=== PATIENT | male | born 1945 | race Caucasian/White ===

== ENCOUNTER → 2019-11-10 | Outpatient (REF) | payer MEDICARE, OTHER ==
[2019-11-10 17:38] LABS: BLOOD UREA NITROGEN 25 MG/DL (7-18); CALCIUM LEVEL 9.8 MG/DL (8.8-10.2); CARBON DIOXIDE LEVEL 26 MEQ/L (21-32); CHLORIDE LEVEL 106 MEQ/L (98-107); CREATININE FOR GFR 1.09 MG/DL (0.70-1.30); GLOMERULAR FILTRATION RATE > 60.0 (>42); GLUCOSE, FASTING 77 MG/DL (70-100); POTASSIUM SERUM 4.3 MEQ/L (3.5-5.1); SODIUM LEVEL 136 MEQ/L (136-145)
== END ==
LOC: M LABDRAWC 16:01
PROVIDERS: ATTEND Nurse Practitioner Women's Health
DX: C61 Malignant neoplasm of prostate (principal)
CPT/HCPCS: 36415; 80048; G0463

== ENCOUNTER → 2019-12-16 | Outpatient (CLI) | payer OTHER ==
--- NOTE | 2019-12-16 13:18 | REPPI ---
INDICATION: ELEVATED PSA. COMPARISON: None. TECHNIQUE: Real-time sonographic evaluation of prostate performed utilizing transrectal probe. FINDINGS: The prostate measures 4.6 x 3.9 x 5.4 x 5 cm for a total volume of 50.6 mL. Scattered tiny cysts and calcifications are seen. A nodule in the right mid aspect measures 9 x 5 mm. IMPRESSION: Ultrasound guidance was provided for Dr. Pickett who performed ultrasound-guided biopsy of the prostate. <Electronically signed by Jairo Araujo > 12/16/19 [id number]
== END ==
LOC: M SMT PRO 08:21
PROVIDERS: ATTEND Urology
DX: C61 Malignant neoplasm of prostate (principal); R97.20 Elevated prostate specific antigen [PSA]
CPT/HCPCS: 55700; 76872; 76942; G0416

== ENCOUNTER → 2020-01-29 | Outpatient (CLI) | payer OTHER ==
[~2020-01-29] MED LIST: ACET325C5 PO; ALLO100T PO; IBUP200C25 PO; INDO25SU PO; LOPE-39 PO; SYNT100T PO; TUMS500C PO; VALT1TAB PO; ZOCO40TA PO
== END ==
LOC: M LABSMTC 11:04
PROVIDERS: ATTEND Anesthesiology
DX: Z01.812 Encounter for preprocedural laboratory examination (principal); Z20.828 Contact with and (suspected) exposure to other viral communicable diseases

== ENCOUNTER 2020-02-03 10:49 | Inpatient (IN) | payer OTHER ==
[~2020-02-03] VITALS: Ht 172.7 cm; Wt 105.7 kg
[~2020-02-03 10:49] MED LIST changes: +LIDOCAINE 2% 100MG/5ML SDV (FOR ANES.) As Ordered ONE; +LR 1,000 ML IV ONE; +ONDANSETRON 4MG/2ML VIAL As Ordered ONE; +ROCURONIUM BROMIDE 50 MG/5 ML VIAL As Ordered ONE; +SUGAMMADEX SODIUM 500 MG/5 ML VIAL (BRIDION) As Ordered ONE; +dexameTHASONE 4 MG/ML 1ML VIAL (J1100 PER 1MG) As Ordered ONE; +fentaNYL 100 MCG/2 ML INJECTION (J3010) As Ordered ONE; +propofoL 200 MG/20 ML VIAL As Ordered ONE
[2020-02-03] MEDS ORDERED: BUPIVACAINE HCL 0.25% 30ML VIAL As Ordered ONE (11:45)
[2020-02-03] MEDS ORDERED: LIDOCAINE 1% SDV 30ML VIAL As Ordered ONE (11:45)
[2020-02-03] MEDS ORDERED: ceFAZolin SOD 2 GM in IV 1 EA IV ONE (12:00)
[2020-02-03] MEDS ORDERED: HEPARIN SOD (PORCINE) 5000UNITS/ML 1ML VIAL/SYRINGE SQ ONE (12:15)
[2020-02-03] MEDS ORDERED: HEPARIN SOD (PORCINE) 5000UNITS/ML 1ML VIAL/SYRINGE As Ordered ONE (12:22)
[2020-02-03] MEDS ORDERED: HYDROmorphone HCL 2 MG/ML 1ML VIAL (J1170) As Ordered ONE (13:19)
[2020-02-03] MEDS ORDERED: MIDAZOLAM INJ 2MG/2ML VIAL (J2250 PER 1MG) As Ordered ONE (13:28)
[2020-02-03] MEDS ORDERED: ROCURONIUM BROMIDE 50 MG/5 ML VIAL As Ordered ONE ×4 (13:55→16:20)
[2020-02-03] MEDS ORDERED: ePHEDrine SULFATE 25 MG/5 ML(5MG/ML) SYRINGE As Ordered ONE ×2 (14:34→16:10)
[2020-02-03] MEDS ORDERED: LIDOCAINE 2% 100MG/5ML SDV (FOR ANES.) As Ordered ONE ×2 (15:48→16:43)
[2020-02-03] MEDS ORDERED: ACETAMINOPHEN 1000MG 100ML IV BTL (OFIRMEV) (J0131 PER 10MG) As Ordered ONE (16:49)
[2020-02-03] MEDS ORDERED: propofoL 200 MG/20 ML VIAL As Ordered ONE (16:49)
[2020-02-03] MEDS ORDERED: NS 1,000 ML IV SCH (17:53)
[2020-02-03] MEDS ORDERED: ONDANSETRON 4MG/2ML VIAL IV PRN ×2 (18:00→18:45)
[2020-02-03] MEDS ORDERED: PERCOCET 5MG/325MG TAB PO PRN (18:00)
[2020-02-03] MEDS ORDERED: MORPHINE 2 MG/ML 1ML VIAL (J2270) IV PRN (18:00)
[2020-02-03] MEDS ORDERED: ACETAMINOPHEN TAB 650MG DOSE (2X325MG) PO PRN (18:00)
--- NOTE | 2020-02-03 18:16 | ROOPDOC ---
[facility] Report Of Operation Report of Operation DATE OF PROCEDURE: 02/03/20 PREPROCEDURE DIAGNOSES: Prostate Cancer. POSTPROCEDURE DIAGNOSES: Prostate Cancer. PROCEDURE: Robotic-assisted Laparoscopic Radical Prostatectomy. SURGEON: Joann Todd MD CONTRACTING ENGINEER: Mague Boyer NP ANESTHESIA: General. OPERATIVE INDICATIONS: This is a 74 year old male with clinical T1c [place] 3+3 prostate cancer, here today for treatment. DESCRIPTION OF PROCEDURE: The patient was brought to the operating room and general anesthesia was induced. Prophylactic antibiotics were infused. He was then placed in the supine position and prepped and draped in the usual sterile fashion. At this point, a Lala catheter was inserted into the bladder and the balloon was filled with 10 mL of sterile water. We then made a midline incision just above the umbilicus for an 8 mm port. A Veress needle was utilized to achieve pneumoperitoneum. Next, an 8 mm port was inserted into the incision and subsequently a camera was inserted. There were no injuries from the Veress needle or initial trocar placement. Then three robotic ports were placed in the usual configuration in line just below the level of the umbilicus. A 12 mm physical laboratory assistant port was inserted lateral to the camera port. Once all the ports were placed, the robot was docked. Additional lysis of adhesions between the sigmoid colon and abdominal wall was then performed. The bladder was then released from the anterior abdominal wall using electrocautery. Once the bladder was dropped, the fat overlying the prostate was cleared using electrocautery. The superficial dorsal vein was controlled with electrocautery. The endopelvic fascia was opened on both sides and the dorsal venous complex was cleared. Next, a #0 Vicryl cppnvy-st-ctkce stitch was placed around the dorsal venous complex. Once that was done, the bladder was opened and dissected away from the prostate. At this point, the prostate was lifted up. The vasa deferentia were identified in the midline. They were ligated and transected. The seminal vesicles were also dissected bilaterally. The rectum was safely mobilized away from the prostate. Bilateral neurovascular bundles were carefully dissected off the prostate on both sides using cold scissors. I then ligated and transected bilateral prostatic pedicles using the SynchroSeal. The pedicles were carried towards the apex. After taking care of the pedicles and mobilizing the rectum off the prostate below, the prostate was only connected by the urethra. At this point, the dorsal venous complex was transected with electrocautery. The urethra was then opened and the catheter was withdrawn and the posterior urethra was transected, thus freeing the prostate. At this point, we checked for hemostasis and it appeared very good. Once hemostasis was confirmed, I then moved on to perform the vesicourethral anastomosis. The vesicourethral anastomosis was performed in running fashion using a Quill stitch. Once this was done, the final #20-Togolese Lala catheter was placed. The balloon was filled with 15 mL of sterile water. Upon completion of the vesicourethral anastomosis, it was tested by filling the bladder with sterile saline. The anastomosis appeared to be watertight. At this point, the prostate and seminal vesicles were placed in an Endo Catch bag for future retrieval. A Nicola-Shelton drain was brought in through the left robotic port skin site and the drain was positioned anterior to the bladder. The robot was then undocked. A Rafael fascial closure device was utilized to place a #0 Vicryl suture through the fascia of the 12 mm physical laboratory assistant port. The drain was secured to the skin with #2-0 Ethilon suture. The prostate and seminal vesicles were then extracted from the camera port site after the skin was extended. The fascia in this incision was then closed with a running #0 Vicryl stitch. Next, all the remaining ports were removed and there did not appear to be any bleeding from any of the port sites. The previously placed #0 Vicryl free ties through the physical laboratory assistant port were then tied down and all incisions were irrigated. Last, all of the incisions were closed with running subcuticular #4-0 Monocryl sutures. Local anesthesia was applied. Dermabond was then applied to the incisions. This marked the conclusion of the procedure. The patient was then awakened from anesthesia and transported to the recovery room in stable condition. ESTIMATED BLOOD LOSS: 175mL. COMPLICATIONS: None. SPECIMENS: Prostate and seminal vesicles. PLAN: The patient will be admitted to the hospital postoperatively, and he will likely be discharged home within the next 1-2 days. JOANN TODD MD Feb 03, 2020 18:16
[2020-02-03 18:26] LABS: HEMATOCRIT 45.1 % (42.0-52.0); HEMOGLOBIN 14.7 g/dl (13.5-17.5); MEAN CORPUSCULAR HEMOGLOBIN 32.2 pg (27.0-33.0); MEAN CORPUSCULAR HGB CONC 32.6 g/dl (32.0-36.5); MEAN CORPUSCULAR VOLUME 98.9 fl (80.0-96.0); PLATELET COUNT, AUTOMATED 227 10^3/uL (150-450); RED BLOOD COUNT 4.56 10^6/uL (4.30-6.10); WHITE BLOOD COUNT 9.3 10^3/uL (4.0-10.0)
[2020-02-03 18:42] LABS: CALCIUM LEVEL 9.1 MG/DL (8.8-10.2); CREATININE FOR GFR 1.4 MG/DL (0.70-1.30); GLOMERULAR FILTRATION RATE 52.9 (>42)
[2020-02-03] MEDS ORDERED: fentaNYL 100 MCG/2 ML INJECTION (J3010) IV PRN (18:45)
[2020-02-03] MEDS ORDERED: LR 1,000 ML IV SCH (18:45)
[2020-02-03] MEDS ORDERED: oxyCODONE 5MG TAB PO PRN (18:45)
[2020-02-03] MEDS ORDERED: HYDROMORPHONE HCL 0.5 MG/ 0.5 ML SYRINGE (J1170 PER 1) IV PRN (18:45)
[2020-02-03 19:45] VITALS: BP 112/64
[2020-02-03] MEDS: DOCUSATE SODIUM 100MG CAPSULE PO SCH (22:36)
[2020-02-03] MEDS: ceFAZolin SOD 1 GM in D5W MINI-BAG PLUS 50 ML IV SCH (22:36)
[2020-02-03] MEDS: valACYclovir HCL 500 MG TAB PO SCH (22:36)
[2020-02-03] MEDS: HEPARIN SOD (PORCINE) 5000UNITS/ML 1ML VIAL/SYRINGE SC SCH (22:37)
[2020-02-03] MEDS: PERCOCET 5MG/325MG TAB PO PRN (23:35)
[2020-02-04 03:28] VITALS: O2SAT 97
[2020-02-04] MEDS: ceFAZolin SOD 1 GM in D5W MINI-BAG PLUS 50 ML IV SCH (05:50)
[2020-02-04] MEDS: HEPARIN SOD (PORCINE) 5000UNITS/ML 1ML VIAL/SYRINGE SC SCH ×2 (05:50→14:00)
[2020-02-04 06:00] VITALS: BP 111/65
[2020-02-04] MEDS ORDERED: LEVOTHYROXINE 100MCG TABLET (0.1MG) PO SCH (06:00)
[2020-02-04] MEDS: PERCOCET 5MG/325MG TAB PO PRN ×2 (06:05→10:34)
[2020-02-04 06:20] LABS: HEMATOCRIT 41.5 % (42.0-52.0); HEMOGLOBIN 13.3 g/dl (13.5-17.5); MEAN CORPUSCULAR HEMOGLOBIN 31.9 pg (27.0-33.0); MEAN CORPUSCULAR VOLUME 99.5 fl (80.0-96.0); PLATELET COUNT, AUTOMATED 231 10^3/uL (150-450); RED BLOOD COUNT 4.17 10^6/uL (4.30-6.10); WHITE BLOOD COUNT 9.3 10^3/uL (4.0-10.0)
[2020-02-04 06:44] LABS: BLOOD UREA NITROGEN 29 MG/DL (7-18); CALCIUM LEVEL 8.3 MG/DL (8.8-10.2); CARBON DIOXIDE LEVEL 25 MEQ/L (21-32); CHLORIDE LEVEL 105 MEQ/L (98-107); CREATININE FOR GFR 1.17 MG/DL (0.70-1.30); GLOMERULAR FILTRATION RATE > 60.0 (>42); GLUCOSE, FASTING 96 MG/DL (70-100); POTASSIUM SERUM 4.9 MEQ/L (3.5-5.1); SODIUM LEVEL 138 MEQ/L (136-145)
--- NOTE | 2020-02-04 07:48 | IPNPDOC ---
Subjective Review oF Systems Chief Complaint The patient is a 74-year-old male admitted with a reason for visit of Prostate Cancer. Events since Last Encounter No acute events o/n. Good pain control. No n/v. Has not ambulated yet. No f/c/ns. Objective Physical Examination General Exam: Alert, Cooperative, No Acute Distress ABDOMEN EXAM: Soft, Tenderness (mild), Other (incisions clean/dry/intact; MELCHOR w/ serosanguinous output) Neuro Exam: Normal Speech Psych Exam: Mental status NL, Mood NL Other physical findings catheter draining erlinda colored urine Vital Signs/I&O Vital Signs Date Time Temp Pulse Resp B/P (MAP) Pulse Ox O2 Delivery O2 Flow Rate FiO2 02/04/20 06:35 16 02/04/20 06:00 97.4 69 111/65 (80) 96 Room Air 02/04/20 03:28 3.0 I&O- Last 24 Hours up to 6 AM 02/04/20 06:00 Intake Total 2550 ml Output Total 630 ml Balance 1920 ml Laboratory Data Labs 24H Laboratory Tests 2 02/03/20 18:01: Nucleated Red Blood Cells % (auto) 0.0, Anion Gap 6L, Glomerular Filtration Rate 52.9, Calcium Level 9.1 02/04/20 05:36: Nucleated Red Blood Cells % (auto) 0.0, Anion Gap 8, Glomerular Filtration Rate > 60.0, Calcium Level 8.3L CBC/BMP Laboratory Tests 02/03/20 18:01 02/04/20 05:36 Assessment/Plan Date Seen The patient was seen on 02/04/20. Patient Summary This is a 74 y/o M POD1 s/p RALP. Doing well this am. Hb stable. Cr 1.17. Good UOP. Normal MELCHOR output. Plan/VTE VTE Prophylaxis Ordered?: Yes VTE Exclusion Mechanical Proph: N/A:VTE Prophy Ordered VTE Exclusion Pharmacological: N/A:VTE Prophy Ordered Plan/Urinary Catheter Urinary Catheter: Other Catheter: (catheter will need to stay in at least 7 days for healing of vesicourethral anastomosis) Plan - d/c IVF - percocet prn pain - continue home meds - strict I/Os - SCDs when in bed - ambulate - SQH - incentive spirometry - CLD -> ADAT - likely discharge home later today w/ catheter (will remove MELCHOR prior to discharge if output remains low) JOANN TODD MD Feb 04, 2020 07:48
[2020-02-04] MEDS ORDERED: SIMVASTATIN 40 MG TAB PO SCH (09:00)
[2020-02-04] MEDS ORDERED: allopurinoL 100 MG TAB PO SCH (09:00)
[2020-02-04] MEDS: valACYclovir HCL 500 MG TAB PO SCH (09:05)
[2020-02-04] MEDS: DOCUSATE SODIUM 100MG CAPSULE PO SCH (09:05)
[2020-02-04 10:00] VITALS: BP 122/79
[2020-02-04 14:00] VITALS: BP 120/78
[2020-02-04] MEDS ORDERED: DOK1CAP7 PO (14:46)
[2020-02-04] MEDS ORDERED: PERCOCET PO (14:46)
[2020-02-04] MEDS ORDERED: CIPR500S PO (14:46)
[2020-02-04] MEDS ORDERED: ONDANSETRON 4 MG ORAL DISINTEGRATING TAB PO PRN (17:00)
--- NOTE | 2020-02-05 15:03 | DSES ---
DISCHARGE SUMMARY DATE OF ADMISSION: 02/03/2020 DATE OF DISCHARGE: 02/04/2020 ADMISSION DIAGNOSIS: Prostate cancer. DISCHARGE DIAGNOSIS: Prostate cancer. ADMITTING PHYSICIAN: Byron Pickett MD DISCHARGE PHYSICIAN: Byron Pickett MD PROCEDURE PERFORMED: Robotic-assisted laparoscopic radical prostatectomy on February 03, 2020. HISTORY OF PRESENT ILLNESS: This is a 74-year-old male with prostate cancer who underwent the above procedure for treatment. He was admitted postoperatively. HOSPITALIZATION COURSE: The patient was admitted to the hospital after undergoing the above listed surgery. His postoperative course was for the most part unremarkable. On post op day 1, all of his lab work was within normal limits. Specifically, his hemoglobin level was stable at 13.3 and his serum creatinine was normal at 1.17. He had good urine output and minimal output from his Nicola-Shelton drain. Throughout the day, he was ambulating well without assistance. His pain was controlled with oral pain medications. His diet was advanced. He was tolerating regular diet. He was therefore deemed ready for discharge to home. His Nicola-Shelton drain was removed prior to discharge. Of note, just prior to discharging the patient, the patient had an episode of nausea and vomiting. There was only a small amount of vomiting. The patient was given oral Zofran and subsequently he felt much better and still wanted to go home. He demonstrated that he was able to tolerate food after that and therefore, was discharged to home with his catheter in place. He will follow up in the Urology Clinic in approximately one week for catheter removal and to discuss pathology results.
== END 2020-02-04 17:55 | disposition home or self-care (01) | DRG 708 ==
LOC: M OR 10:49 → EDSTATUS 12:45 → M MS5PR 19:45
PROVIDERS: ADMIT Urology; ATTEND Urology
PROC: 8E0W4CZ Robotic Assisted Procedure of Trunk Region, Percutaneous Endoscopic Approach (ICD-10-PCS; 2020-02-03)
PROC: 0VT04ZZ Resection of Prostate, Percutaneous Endoscopic Approach (ICD-10-PCS; principal; 2020-02-03 12:45)
DX: C61 Malignant neoplasm of prostate (principal)

== ENCOUNTER → 2020-03-11 | Outpatient (REF) | payer OTHER ==
[~2020-03-11] MED LIST changes: +CIPR500S PO; +DOK1CAP7 PO; -LIDOCAINE 2% 100MG/5ML SDV (FOR ANES.) As Ordered ONE; -LR 1,000 ML IV ONE; -ONDANSETRON 4MG/2ML VIAL As Ordered ONE; +PERCOCET PO; -ROCURONIUM BROMIDE 50 MG/5 ML VIAL As Ordered ONE; -SUGAMMADEX SODIUM 500 MG/5 ML VIAL (BRIDION) As Ordered ONE; -dexameTHASONE 4 MG/ML 1ML VIAL (J1100 PER 1MG) As Ordered ONE; -fentaNYL 100 MCG/2 ML INJECTION (J3010) As Ordered ONE; -propofoL 200 MG/20 ML VIAL As Ordered ONE
== END ==
LOC: M SFHCCLAY 12:37
PROVIDERS: ATTEND Nurse Practitioner Family
DX: C61 Malignant neoplasm of prostate (principal)

== ENCOUNTER → 2020-06-10 | Outpatient (REF) | payer OTHER | LOC: M SFHCCLAY 14:08 | PROVIDERS: ATTEND Urology | DX: C61 Malignant neoplasm of prostate (principal) ==

== ENCOUNTER → 2020-07-09 | Outpatient (CLI) | payer OTHER ==
--- NOTE | 2020-07-09 11:33 | RADONC.CN ---
Radiation Oncology Hx/Consult Radiation Oncology Consult Date of Service: July 09, 2020 Pt Identifier Manuel Sandoval is a 75 year old male with prostate cancer [id number] [place] 3+4=7 with positive base margin, post-op PSA to 0.4. He is seen today for consideration of salvage RT +/- ADT. Diagnosis/Treatment History Oncologic History Diagnosed with [place] 3+3=6 PSA 4 disease in 2018 @ [facility]. Opted for . PSA increased to 13.0 in Fall 2019, patient opted for RALP (Dr. Todd) 02/03/20 RALP Pathology: [id number] [place] 3+4=7 positive margin left base Post-op PSA 03/11/20 0.26 06/10/20 0.40 IPSS 1 ELLY 1 Interval History Manuel reports he has complete continence, no urgency or frequency. He has regular BMs, no bleeding. He has ED since surgery. Has received viagra script but has not tried it yet. He has stable weight and appetite. Lives in [place], has place on [facility] Past Medical History: Broken neck 2010 ED Gout HPL Hypothyroidism Past Surgical History: Tonsillectomy Family History: Father sarcoma Brother myeloma Sister breast cancer Social History: Never smoker Active drinker, drinks daily Occupational exposure to lead, mercury, asbestos, radioactive waste Allergies / Meds Allergies: Coded Allergies: Penicillins (Verified Allergy, Mild, MILD RASH, 02/03/20) Home Meds Active Scripts Docusate Sodium (Dok) 100 Mg Capsule, 100 MG PO BID, #20 CAP Prov:JOANN TODD MD 02/04/20 Reported Medications Indomethacin (Indocin) 25 Mg/5 Ml Oral.susp, 50 MG PO DAILY, MALOU 01/27/20 Levothyroxine Sodium (Synthroid) 100 Mcg Tablet, 100 MCG PO DAILY for 30 Days, #30 TAB 01/27/20 Simvastatin (Zocor) 40 Mg Tablet, 40 MG PO DAILY for 30 Days, #30 TAB 01/27/20 Allopurinol (Allopurinol) 100 Mg Tablet, 100 MG PO DAILY for 30 Days, #30 TAB 01/27/20 Calcium Carbonate (Tums) 200 Mg Tab.chew, 500 MG PO, CHW 01/27/20 Loperamide HCl (Imodium A-D) 2 Mg Capsule, 2 MG PO PRN PRN for DIARRHEA, CAP 01/27/20 Ibuprofen (Ibuprofen) 200 Mg Capsule, 200 MG PO Q8H for 5 Days, #30 CAP 01/27/20 Acetaminophen (Tylenol) 325 Mg Capsule, 325 MG PO, CAP 01/27/20 Valacyclovir HCl (Valtrex) 1,000 Mg Tablet, 1 GRAM PO BID for 10 Days, #20 TAB 01/27/20 Discontinued Scripts Ciprofloxacin (Cipro) 500 Mg/5 Ml Malou.mc.rec, 500 MG PO DAILY for 7 Days, #7 MALOU Prov:JOANN TODD MD 02/04/20 Oxycodone/Acetaminophen (Oxycodone-Acetaminophen 5-325) 1 Each Tablet, 1 TAB PO Q4H PRN for MODERATE/SEVERE PAIN (PS 5-10) MDD 6, #30 TAB Prov:JOANN TODD MD 02/04/20 Review of Systems General: Reports: Normal Appetite Constitutional: Denies: Chills, Fever, Night Sweats Eyes: Denies: Pain, Vision change HEENT: Denies: Head Aches, Dysphagia, Sore Throat Skin: Denies: Rash, Lesions, Bruising Pulmonary: Denies: Dyspnea, Cough Cardiovascular: Denies: Chest Pain, Palpitations, Edema Gastrointestinal: Denies: Nausea, Vomiting, Abdominal Pain, Diarrhea Genitourinary: Denies: Dysuria, Frequency, Incontinence Hematologic: Denies: Bruising, Petecchia, Enlarged Lymph Nodes Musculoskeletal: Denies: Neck pain, Back pain Neurological: Denies: Weakness, Numbness, Incoordination Psych: Reports: Mood Normal; Denies: Memory Issues, Thoughts of Self Harm Vital Signs Ht 69" Wt 252 BMI 37 T 97.1 P 71 RR 18 BP 152/102 O2 98% Pain 0 Fatigue 1 General Exam: Positive: Alert, Cooperative, No Acute Distress Eye Exam: Positive: PERRLA, EOMI ENT EXAM: Positive: Mucous membr. moist/pink, Pharynx Normal Neck Exam: Negative: Thyromegaly, Lymphadenopathy Chest Exam: Positive: Normal air movement; Negative: Rales, Rhonchi, Wheezing Heart Exam: Positive: Rate Normal, Regular Rhythm Abdomen Exam: Positive: Soft; Negative: Tenderness, Mass Extremity Exam: Negative: Edema, Tenderness Skin Exam: Positive: Nl turgor and temperature; Negative: Rash Neuro Exam: Positive: Normal Gait, Normal Speech, Cranial Nerves 3-12 NL Psych Exam: Positive: Mental status NL, Mood NL, Memory Intact Other Physical Findings Deferred , post-op Diagnostic and Laboratory Diagnostic Review Radiologic images, relevant labs and pathology reports were personally reviewed and discussed with Mr. Sandoval. Assessment and Plan Impression Mr. Sandoval is a 75 year old male with prostate cancer [id number] [place] 3 +4=7 with positive base margin, post-op PSA to 0.4. He is seen today for consideration of salvage RT +/- ADT. Stage Stage IIB [id number] [place] 3+4=7 (+margin) pre-op PSA 13, post-op to 0.4 Performance Status ECOG 0 Plan We had an extensive discussion with Mr. Sandoval regarding the diagnosis at hand and available therapeutic options. He had a non-zero PSA post-operatively with a positive margin at the left base. His PSA has risen to 0.4. He has preserved continence, but significant ED post- operatively. I encouraged him to try viagra now, before RT, to ascertain whether there is any salvageable erectile function, if there is, then it may influence decision making around ADT. RT +/- ADT is also likely to contribute to worsening ED. If there is no viable erectile function post-operatively, then the point will be moot. I discussed that salvage RT consists of 68.4 Gy in 38 fractions. Per the MSK nomogram addition of 6 months ADT to the RT would increased pBFS probability from 69% to 84% @ 6 years. Addition of ADT is also supported by the SPPORT trial. Also per the SPPORT trial I would include the pelvic LN in the field provided he does not have an inordinate amount of in-field bowel at simulation. On the point of RT he agrees to proceed. He is unsure about ADT and would like to think about this further. We discussed the logistics of receiving radiation therapy in detail including the need for a 1-time planning session. This can occur next week. We reviewed the side effects of ADT and RT, fatigue, low libido, hot flashes, weight gain, and irritative voiding symptoms, diarrhea, and late rectal bleeding, respectively. After discussing the risks, benefits and alternatives to radiation therapy, Mr. Sandoval was amenable to pursuing radiotherapy. All questions were answered to the patient's satisfaction. We instructed the patient that if there were any questions,concerns or changes in clinical status in the interim to contact us. We will revisit ADT at a later date. Recommendations Salvage RT 68.4 Gy in 38 fractions as discussed above Patient to consider ADT 6 month course Simulation in the next week Encouraged him to try viagra now and see if there is any residual erectile function to salvage as this may influence ADT decisions Billing Statement Total time of [50] minutes was spent preparing for the visit [4], obtaining HPI [6], examining the patient [2], reviewing diagnostic tests [5], discussing ma nagement options [21], coordinating care [2], and writing this note [10]. GERALDO LE MD July 09, 2020 11:33
== END ==
LOC: M ONCR 09:46
PROVIDERS: ATTEND General Practice
DX: C61 Malignant neoplasm of prostate (principal)

== ENCOUNTER 2020-07-13 10:32 | Outpatient (RCR) | payer OTHER ==
--- NOTE | 2020-07-13 10:57 | RADENCPD ---
Date/Time of Encounter Date of Encounter: July 13, 2020 Time of Encounter: 10:55 Encounter Spoke to patient before simulation today regarding option of 6 months fo ADT to minimize prostate cancer recurrence risk. Reviewed the side effects of ADT. He has decided that he does not want ADT with his salvage RT. Will proceed with salvage RT alone. GERALDO LE MD July 13, 2020 10:57
== END 2020-07-19 ==
LOC: M ONCR 10:32
PROVIDERS: ATTEND General Practice
DX: C61 Malignant neoplasm of prostate (principal)

== ENCOUNTER → 2020-08-18 | Outpatient (RCR) | payer OTHER | LOC: M ONCR 07-20 13:55 | PROVIDERS: ATTEND General Practice | DX: C61 Malignant neoplasm of prostate (principal) ==

== ENCOUNTER → 2020-08-20 | Outpatient (CLI) | payer OTHER | LOC: M RAD 11:26 | PROVIDERS: ATTEND Orthopaedic Surgery Sports Medicine | DX: M75.41 Impingement syndrome of right shoulder (principal); Z53.9 Procedure and treatment not carried out, unspecified reason ==

== ENCOUNTER 2020-09-17 09:49 | Outpatient (RCR) | payer OTHER ==
[~2020-09-17 09:49] MED LIST changes: +PROC5TAB57 PO
== END 2020-09-18 ==
LOC: M ONCR 09:49
PROVIDERS: ATTEND General Practice
DX: C61 Malignant neoplasm of prostate (principal)

== ENCOUNTER 2020-09-20 09:30 | Outpatient (RCR) | payer OTHER ==
[~2020-09-20 09:30] MED LIST changes: +DOK1CAP4 PO; -DOK1CAP7 PO
== END 2020-10-19 ==
LOC: M ONCR 09:30
PROVIDERS: ATTEND General Practice
DX: C61 Malignant neoplasm of prostate (principal)

== ENCOUNTER → 2020-12-22 | Outpatient (CLI) | payer OTHER ==
--- NOTE | 2020-12-22 15:00 | RADONC ---
Radiation Oncology Hx/FUP Radiation Oncology Hx/FUP Date of Service: Dec 22, 2020 Pt Identifier Manuel Sandoval is a 75 year old male with a history of prostate cancer [id number] [place] 3+4=7 with positive base margin, post-op PSA to 0.4. He completed salvage RT 68.4 Gy in 38 fractions 07/22/20-09/20/20. He declined 6 months of ADT. Diagnosis/Treatment History Oncologic History Diagnosed with [place] 3+3=6 PSA 4 disease in 2018 @ [facility]. Opted for . PSA increased to 13.0 in Fall 2019, patient opted for RALP (Dr. Todd) 02/03/20 RALP Pathology: [id number] [place] 3+4=7 positive margin left base Post-op PSA 03/11/20 0.26 06/10/20 0.40 11/15/20 <0.02 (Post-RT) Interval History Juan Manuel had some fatigue post-RT which has recently improved. He has no bowel con cerns, at baseline. He has no urinary bother. Appetite good and weight stable. He has some right shoulder pain from arthritis. Current Therapy Surveillance Stage Stage IIB [id number] [place] 3+4=7 (+margin) pre-op PSA 13, post-op to 0.4 Social History: Never smoker Active drinker, drinks daily Occupational exposure to lead, mercury, asbestos, radioactive waste Allergies / Meds Allergies: Coded Allergies: Penicillins (Verified Allergy, Mild, MILD RASH, 02/03/20) Home Meds Active Scripts Prochlorperazine (Prochlorperazine Maleate) 5 Mg Tablet, 1 TAB PO QIDP PRN for NAUSEA MDD 4 tablets, #30 TAB 1 Refill Prov:GERALDO LE MD 09/13/20 Docusate Sodium (Dok) 100 Mg Capsule, 100 MG PO BID, #20 CAP Prov:JOANN TODD MD 02/04/20 Reported Medications Indomethacin (Indocin) 25 Mg/5 Ml Oral.susp, 50 MG PO DAILY, BRANDON 01/27/20 Levothyroxine Sodium (Synthroid) 100 Mcg Tablet, 100 MCG PO DAILY for 30 Days, #30 TAB 01/27/20 Simvastatin (Zocor) 40 Mg Tablet, 40 MG PO DAILY for 30 Days, #30 TAB 01/27/20 Allopurinol (Allopurinol) 100 Mg Tablet, 100 MG PO DAILY for 30 Days, #30 TAB 01/27/20 Calcium Carbonate (Tums) 200 Mg Tab.chew, 500 MG PO, CHW 01/27/20 Loperamide HCl (Imodium A-D) 2 Mg Capsule, 2 MG PO PRN PRN for DIARRHEA, CAP 01/27/20 Ibuprofen (Ibuprofen) 200 Mg Capsule, 200 MG PO Q8H for 5 Days, #30 CAP 01/27/20 Acetaminophen (Tylenol) 325 Mg Capsule, 325 MG PO, CAP 01/27/20 Valacyclovir HCl (Valtrex) 1,000 Mg Tablet, 1 GRAM PO BID for 10 Days, #20 TAB 01/27/20 Review of Systems Review of Systems Constitutional: Denies: Fatigue Eyes: Denies: Pain HEENT: Denies: Head Aches Gastrointestinal: Denies: Abdominal Pain, Hematochezia Genitourinary: Denies: Dysuria, Incontinence Musculoskeletal: Reports: Shoulder pain (Right shoulder); Denies: Neck pain, Back pain Neurological: Denies: Weakness, Numbness Psych: Reports: Mood Normal Physical Examination Vital Signs Wt 248 lbs T 95.9 P 69 RR 17 BP 137/92 O2 97% Pain 0 Fatigue 0 General Exam: Alert, Cooperative, No Acute Distress Eye Exam: PERRLA EOMI ENT EXAM: Atraumatic Neck Exam: Supple Chest Exam: Clear to auscultation Heart Exam: Rate Normal Abdomen Exam: Soft Extremity Exam: Negative: Edema Skin Exam: Nl turgor and temperature Neuro Exam: Normal Gait, Normal Speech, Cranial Nerves 3-12 NL Psych Exam: Mental status NL Diagnostic and Laboratory Diagnostic Review Radiologic images, relevant labs and pathology reports were personally reviewed and discussed with Mr. Sandoval. Assessment and Plan Impression Assessment Mr. Sandoval is a 75 year old male with a history of prostate cancer [id number] [place] 3+4=7 with positive base margin, post-op PSA to 0.4. He completed salvage RT 68.4 Gy in 38 fractions 07/22/20-09/20/20. He declined 6 months of ADT. He is doing well. Back to baseline energy levels. No urinary or bowel bother at this time. PSA is undetectable which is evidence of remission. Discussed follow up in 6 months for another PSA check. He can call in the meantime if needed. Performance Status ECOG 0 Plan Follow up in 6 months with PSA Mr. Sandoval was encouraged to call with questions or concerns in the interim period. Billing Statement Total time of [23] minutes was spent preparing for the visit [2], obtaining HPI [4], examining the patient [1], reviewing diagnostic tests [1], discussing management options [7], coordinating care [2], and writing this note [6]. GERALDO LE MD Dec 22, 2020 15:00
== END ==
LOC: M ONCR 14:15
PROVIDERS: ATTEND General Practice
DX: C61 Malignant neoplasm of prostate (principal); Z92.3 Personal history of irradiation; Z88.0 Allergy status to penicillin; Z79.899 Other long term (current) drug therapy

== ENCOUNTER → 2021-02-14 | Outpatient (REF) | payer OTHER | LOC: M SFHCCLAY 15:11 | PROVIDERS: ATTEND Urology | DX: C61 Malignant neoplasm of prostate (principal) ==

== ENCOUNTER → 2021-08-04 | Outpatient (CLI) | payer OTHER ==
[2021-08-04 13:57] LABS: PROSTATIC SPECIFIC AG MONITOR < 0.01 NG/ML (< 4.00); TESTOSTERONE 203 NG/DL (241-827)
== END ==
LOC: M ONCR 10:16
PROVIDERS: ATTEND General Practice
DX: Z08 Encounter for follow-up examination after completed treatment for malignant neoplasm (principal); C61 Malignant neoplasm of prostate; Z79.899 Other long term (current) drug therapy; Z88.0 Allergy status to penicillin; Z92.3 Personal history of irradiation
CPT/HCPCS: 84153; 84403; G0463

== ENCOUNTER → 2022-08-09 | Outpatient (CLI) | payer MEDICARE, OTHER ==
[~2022-08-09] MED LIST changes: +SIMV-254 PO; -ZOCO40TA PO
== END ==
LOC: M ONCR 10:07
PROVIDERS: ATTEND General Practice
DX: C61 Malignant neoplasm of prostate (principal); Z71.2 Person consulting for explanation of examination or test findings; Z79.3 Long term (current) use of hormonal contraceptives; Z79.899 Other long term (current) drug therapy; Z88.0 Allergy status to penicillin